=== PATIENT | male | born 1990 | race Caucasian/White ===

== ENCOUNTER 2024-11-26 11:08 | Emergency (ER) | payer OTHER ==
[2024-11-26 11:48] LABS: Absolute Lymphocytes (CBC) 1.2 K/uL (0.7-4.9); Hematocrit 44.8 % (39.6-49.0); Hemoglobin 15.5 g/dL (13.6-17.9); MCH 30.2 pg (27.0-35.0); MCHC 34.7 g/dL (32.0-36.0); MCV 87.2 fL (80-100); MPV 9.6 fL (7.6-11.3); Nucleated RBC Absolute Count 0.0 (0-0); Nucleated Red Blood Cells % 0.1 % (0-0); RBC Red Blood Cell Count 5.13 M/uL (4.33-5.43); White Blood Count 10.60 thou/uL (4.3-10.9)
[2024-11-26 11:52] LABS: Sqamous Epithelial <5 /HPF (None Seen); Urine Crystals Unidentified Few /HPF (None Seen); Urine Microscopic Reflex YN ORDER UMIC; Urine WBC Clump Rare /HPF (None Seen); Urine Yeast (Budding) Trace /HPF (None Seen)
[2024-11-26] MEDS ORDERED: KETOROLAC 30 MG/ML INJ ONE (11:52)
[2024-11-26] MEDS ORDERED: ONDANSETRON 4 MG/2 ML VIAL ONE ×2 (11:52→12:12)
[2024-11-26] MEDS ORDERED: NA CHLORIDE 0.9% 1,000 ML ONE (11:53)
[2024-11-26 11:55] LABS: Urine Culture Reflex Order NOT NEEDED
[2024-11-26] MEDS ORDERED: HYDROMORPHONE HCL 1 MG/ML INJ ONE ×2 (12:12→13:07)
[2024-11-26 12:15] LABS: ALT/SGPT 50.0 U/L (16-61); Albumin 4.1 g/dL (3.4-5.0); Albumin/Globulin Ratio 1.2 (1.1-1.8); Alkaline Phosphatase 66.0 U/L (45-117); Anion Gap 9.9 mEq/L (5.0-15.0); BUN Blood Urea Nitrogen 9.0 mg/dL (7-18); Globulin 3.5 g/dL (2.3-3.5); Glucose Level 134.0 mg/dL (74-106); Lipase 14.0 U/L (13-75)
[2024-11-26 12:16] LABS: AST/SGOT 34.0 U/L (15-37); Potassium 3.9 mEq/L (3.5-5.1)
--- NOTE | 2024-11-26 12:36 | RAD REPORT ---
EXAMINATION: CT ABDOMEN AND PELVIS WITHOUT CONTRAST CLINICAL INDICATION: Abdominal pain. Left flank pain TECHNIQUE: CT abdomen and pelvis was performed, as per department protocol. IV contrast and oral was not administered.Axial, sagittal and coronal reconstructions were obtained. One or more of the following dose reduction techniques were used: Automated exposure control, adjustment of the mA and/o r kV according to the patient size, and/or iterative reconstruction. Unless otherwise specified, incidental findings do not require dedicated imaging follow-up. [id number]. COMPARISON: No prior exam. FINDINGS: The lack of intravenous and oral contrast limits evaluation of solid organs, vessels and bowel. Multiple, bilateral small renal calculi. Mild left hydronephrosis with mild perirenal stranding. 6 mm calculus distal left ureter. Liver, spleen, pancreas and adrenals grossly normal. Small right inguinal hernia No evidence of diverticulitis IMPRESSION: 6 cm calculus distal left ureter results in mild right hydronephrosis
--- NOTE | 2024-11-26 12:57 | ER ---
Nurse's Notes [facility] Name: Rambo Robb Age: 34 yrs Sex: Male : 1990 Arrival Date: 11/26/2024 Time: 11:08 Bed 13 Private MD: Diagnosis: Ureterolithiasis, kidney stone, left flank pain Presentation: 11/26 11:15 Chief complaint: Patient states: left flank pain since this morning , hx of kidney iw stones, feels similar, went to urgent care and they gave him something for nausea and pain. Coronavirus screen: At this time, the client does not indicate any symptoms associated with coronavirus-19. Ebola Screen: No symptoms or risks identified at this time. Initial Sepsis Screen: Does the patient meet any 2 criteria? No. Patient's initial sepsis screen is negative. Does the patient have a suspected source of infection? No. Patient's initial sepsis screen is negative. Risk Assessment: Do you want to hurt yourself or someone else? Patient reports no desire to harm self or others. Onset of symptoms was November 26, 2024. 11:15 Method Of Arrival: Ambulatory iw 11:15 Acuity: MANDI 3 iw Triage Assessment: 12:15 General: Appears uncomfortable, well groomed, Behavior is calm, cooperative, os appropriate for age. Pain: Complains of pain in left mid back. EENT: No deficits noted. Neuro: No deficits noted. Cardiovascular: No deficits noted. Respiratory: No deficits noted. GI: No deficits noted. Historical: - Allergies: 11:17 Codeine; iw - Home Meds: 11:17 None [Active]; iw - PMHx: 11:17 Kidney stone; iw - PSHx: 11:17 Appendectomy; iw - Immunization history:: Adult Immunizations up to date. - Infectious Disease History:: Denies. - Social history:: Smoking status: Patient denies any tobacco usage or history of. Screenin:15 [facility] ED Fall Risk Assessment (Adult) History of falling in the last 3 months, os including since admission No falls in past 3 months (0 pts) Confusion or Disorientation No (0 pts) Intoxicated or Sedated No (0 pts) Impaired Gait No (0 pts) Mobility Assist Device Used No (0 pt) Altered Elimination No (0 pt) Score/Fall Risk Level 0 - 2 = Low Risk Oriented to surroundings, Maintained a safe environment. Abuse screen: Denies threats or abuse. Denies injuries from another. Nutritional screening: No deficits noted. Tuberculosis screening: No symptoms or risk factors identified. Assessment: 13:26 GI: Abd is soft. os Vital Signs: 11:15 BP 149 / 94; Pulse 63; Resp 16; Pulse Ox 99% on R/A; Height 5 ft. 8 in. ; Pain 10/10; iw 11:15 Pain Scale: Adult iw ED Course: 11:10 Patient arrived in ED. [email or web address] 11:14 Aren Vivas MD is Attending Physician. sp3 11:17 Triage completed. iw 11:28 Inserted saline lock: 20 gauge in left antecubital area, using aseptic technique. Blood ts3 collected. Flushed with 10 mL NS. 11:28 Initial lab(s) drawn, by electroplating laborer, sent to lab. ts3 11:43 Urine collected: clean catch specimen, sent to lab. ts3 11:48 CT Abd/Pelvis - Without Contrast In Process Unspecified. EDMS 12:15 No provider procedures requiring assistance completed. os 12:15 Arm band placed on right wrist. os 13:20 IV discontinued. os 13:27 Patient has correct armband on for positive identification. Bed in low position. Call os light in reach. Side rails up X 1. Side rails up X2. Provided Education on: . Administered Medications: 11:58 Drug: TORadol - Ketorolac IVP 15 mg IVP once Route: IVP; Site: left antecubital; os 11:58 Drug: Ondansetron IVP 4 mg IVP once; over 2 minutes Route: IVP; Site: left antecubital; os 11:58 Drug: NS 0.9% IV 1000 ml IV at 1 bolus Per protocol; to be given as a bolus over 60 os minutes Route: IV; Rate: 1 bolus; Site: left antecubital; 12:29 Drug: HYDROmorphone IVP 1 mg IVP once Route: IVP; Site: left antecubital; os 13:28 Follow up: Response: Pain is decreased os 12:32 Drug: Ondansetron IVP 4 mg IVP once; over 2 minutes Route: IVP; Site: left antecubital; os 13:28 Follow up: Response: No adverse reaction; Vomiting decreased os 13:17 Not Given (Patient Refused): hydromorphone1 mg IVP once os Medication: 13:27 VIS not applicable for this client. os Outcome: 12:57 Discharge ordered by MD. [email or web address] 13:27 Discharged to home ambulatory, os 13:27 Condition: improved 13:27 Discharge instructions given to patient, family, Instructed on discharge instructions, follow up and referral plans. no drinking with medication, no driving heavy equipment, medication usage, 13:29 Patient left the ED. os Signatures: Dispatcher [employer] Laura Onofre, RN RN iw Aren Vivas MD MD sp3 Thomas Mcqueen RN RN os Kalani Alexis 3 Sharla Cota ts3 Corrections: (The following items were deleted from the chart) 11:18 11:15 Pulse 63bpm; Resp 16bpm; Pulse Ox 99% RA; Height 5 ft. 8 in.; Pain 10/10, Adult; [facility]
--- NOTE | 2024-11-26 12:57 | EDPHYS ---
Physician Documentation [facility] Name: Rambo Robb Age: 34 yrs Sex: Male : 1990 Arrival Date: 11/26/2024 Time: 11:08 Bed 13 Private MD: ED Physician Aren Vivas HPI: 11/26 11:41 This 34 yrs old Male presents to ER via Ambulatory with complaints of Flank Pain, sp3 Possible Kidney Stone. 11:41 34-year-old male with history of kidney stones presents with left flank pain over the sp3 last 2 days. Patient states he feels like it is his normal kidney stone pattern. ROS negative for fever, headache, chest pain, shortness of breath, intra-abdominal pain, dysuria, or any other signs or symptoms on ROS at this time.. Historical: - Allergies: 11:17 Codeine; iw - Home Meds: 11:17 None [Active]; iw - PMHx: 11:17 Kidney stone; iw - PSHx: 11:17 Appendectomy; iw - Immunization history:: Adult Immunizations up to date. - Infectious Disease History:: Denies. - Social history:: Smoking status: Patient denies any tobacco usage or history of. ROS: 11:41 Constitutional: Negative for fever, chills, and weight loss, Eyes: Negative for injury, sp3 pain, redness, and discharge, ENT: Negative for injury, pain, and discharge, Neck: Negative for injury, pain, and swelling, Cardiovascular: Negative for chest pain, palpitations, and edema, Respiratory: Negative for shortness of breath, cough, wheezing, and pleuritic chest pain, Abdomen/GI: Negative for abdominal pain, nausea, vomiting, diarrhea, and constipation, MS/Extremity: Negative for injury and deformity, Skin: Negative for injury, rash, and discoloration, Neuro: Negative for headache, weakness, numbness, tingling, and seizure, Psych: Negative for depression, anxiety, suicide ideation, homicidal ideation, and hallucinations, Allergy/Immunology: Negative for hives, rash, and allergies, Endocrine: Negative for neck swelling, polydipsia, polyuria, polyphagia, and marked weight changes, 11:41 All other systems are negative, Exam: 11:42 Constitutional: This is a well developed, well nourished patient who is awake, alert, sp3 and in no acute distress. Head/Face: Normocephalic, atraumatic. Eyes: Pupils equal round and reactive to light, extra-ocular motions intact. Lids and lashes normal. Conjunctiva and sclera are non-icteric and not injected. Cornea within normal limits. Periorbital areas with no swelling, redness, or edema. ENT: Nares patent. No nasal discharge, no septal abnormalities noted. External auditory canals are clear. Oropharynx with no redness, swelling, or masses, exudates, or evidence of obstruction, uvula midline. Mucous membranes moist. Neck: Trachea midline, no thyromegaly or masses palpated, and no cervical lymphadenopathy. Supple, full range of motion without nuchal rigidity, or vertebral point tenderness. No Meningismus. Chest/axilla: Normal chest wall appearance and motion. Nontender with no deformity. No lesions are appreciated. Cardiovascular: Regular rate and rhythm with a normal S1 and S2. No gallops, murmurs, or rubs. Normal PMI, no JVD. No pulse deficits. Respiratory: Lungs have equal breath sounds bilaterally, clear to auscultation and percussion. No rales, rhonchi or wheezes noted. No increased work of breathing, no retractions or nasal flaring. Skin: Warm, dry with normal turgor. Normal color with no rashes, no lesions, and no evidence of cellulitis. MS/ Extremity: Pulses equal, no cyanosis. Neurovascular intact. Full, normal range of motion. Neuro: Awake and alert, GCS 15, oriented to person, place, time, and situation. Cranial nerves II-XII grossly intact. Motor strength 5/5 in all extremities. Sensory grossly intact. Cerebellar exam normal. Normal gait. Psych: Awake, alert, with orientation to person, place and time. Behavior, mood, and affect are within normal limits. 11:42 Abdomen/GI: Left flank pain and CVA tenderness noted., Vital Signs: 11:15 BP 149 / 94; Pulse 63; Resp 16; Pulse Ox 99% on R/A; Height 5 ft. 8 in. ; Pain 10/10; iw 11:15 Pain Scale: Adult iw MDM: 11:27 Medical Screening Exam initiated sp3 11:43 Data reviewed: vital signs, nurses notes, lab test result(s), radiologic studies. ED sp3 course: 34-year-old male with history of kidney stones now with left flank pain. Differential diagnosis includes UTI/pyelonephritis spectrum, ureterolithiasis/kidney stone spectrum, other GI pathology, musculoskeletal, among others. Workup will include CT scan of the abdomen pelvis stone protocol, UA, routine labs and pain and nausea control. Disposition pending workup and patient course. Probable discharge home if routine kidney stone noted.. 12:55 ED course: Patient feeling better. Still needs pain medicine we will give an additional sp3 dose of Dilaudid. CT demonstrates 6 mm stone left distal ureter. Labs all within normal limits with normal creatinine and no infection on UA. We will safely discharge patient home on tramadol, diclofenac and Flomax. Follow-up with [facility] urology.. 11/26 11:30 Order name: CBC with Diff; Complete Time: 12:24 sp3 11/26 11:30 Order name: CMP; Complete Time: 12:24 sp3 11/26 11:30 Order name: Lipase; Complete Time: 12:24 sp3 11/26 11:30 Order name: UA Rfx Medhat Cult if indicated; Complete Time: 12:24 sp3 11/26 11:30 Order name: CT Abd/Pelvis - Without Contrast; Complete Time: 12:41 sp3 11/26 11:30 Order name: IV Saline Lock; Complete Time: 11:34 sp3 11/26 11:30 Order name: Labs collected and sent; Complete Time: 11:34 sp3 Administered Medications: 11:58 Drug: TORadol - Ketorolac IVP 15 mg IVP once Route: IVP; Site: left antecubital; os 11:58 Drug: Ondansetron IVP 4 mg IVP once; over 2 minutes Route: IVP; Site: left antecubital; os 11:58 Drug: NS 0.9% IV 1000 ml IV at 1 bolus Per protocol; to be given as a bolus over 60 os minutes Route: IV; Rate: 1 bolus; Site: left antecubital; 12:29 Drug: HYDROmorphone IVP 1 mg IVP once Route: IVP; Site: left antecubital; os 13:28 Follow up: Response: Pain is decreased os 12:32 Drug: Ondansetron IVP 4 mg IVP once; over 2 minutes Route: IVP; Site: left antecubital; os 13:28 Follow up: Response: No adverse reaction; Vomiting decreased os 13:17 Not Given (Patient Refused): hydromorphone1 mg IVP once os Disposition Summary: 11/26/24 12:57 Discharge Ordered Notes: Location: Home sp3 Condition: Stable sp3 Diagnosis - Ureterolithiasis, kidney stone, left flank pain sp3 Followup: sp3 - With: Private Physician - When: Upon discharge from the Emergency Department - Reason: Recheck today's complaints Discharge Instructions: - Discharge Summary Sheet sp3 - Kidney Stones sp3 Forms: - Medication Reconciliation Form sp3 - Antibiotic Education sp3 - Prescription Opioid Use sp3 - Patient Portal Instructions sp3 - Leadership Thank You Letter sp3 Prescriptions: - Flomax 0.4 mg Oral capsule - take 1 capsule ORAL route daily; 7 capsule; Refills: 0, Product Selection sp3 Permitted - Diclofenac Sodium 75 mg Oral Tablet Sustained Release - take 1 tablet ORAL route 2 times per day; 30 tablet; Refills: 0, Product sp3 Selection Permitted - Tramadol 50 mg Oral Tablet - take 1 tablet ORAL route every 8 hours as needed; 12 tablet; Refills: 0, sp3 Product Selection Permitted Signatures: Dispatcher [employer] Laura Onofre RN RN iw Aren Vivas MD MD sp3 Thomas Mcqueen RN RN os
[2024-11-26 13:46] VITALS: BP 149/94; O2SAT 99
== END 2024-11-26 13:29 | disposition home or self-care (01) ==
LOC: ER 11:08
DX: N20.2 Calculus of kidney with calculus of ureter (principal); Z87.442 Personal history of urinary calculi
CPT/HCPCS: 85025; 81001; 36415; 83690; 80053; 74176; 96375; 96374; 99284; J1171; J2405 ×2; J7030; J1885